=== PATIENT | female | born 1985 | race American Indian/Alaskan Native ===

== ENCOUNTER 2021-10-27 01:59 | Emergency (ER) | payer OTHER ==
[2021-10-27] MEDS ORDERED: methylPREDNISolone Sodium Succinate 125 MG/2 ML SDV IM ONE (02:24)
[2021-10-27] MEDS ORDERED: LORazepam 1 MG Tab PO ONE (02:36)
[2021-10-27 02:38] LABS: TROPONIN I HIGH SENSITIVITY 4.8 pg/mL (<=60.3)
[2021-10-27 02:58] LABS: CORONAVIRUS COVID-19 NAA NEGATIVE (NEGATIVE)
== END 2021-10-27 03:12 ==
LOC: JP.ED 01:59
DX: F41.0 Panic disorder [episodic paroxysmal anxiety] (principal); F45.8 Other somatoform disorders; F43.0 Acute stress reaction; L50.9 Urticaria, unspecified; E87.6 Hypokalemia; Z20.822 Contact with and (suspected) exposure to COVID-19
CPT/HCPCS: 0241U; 36415; 71045; 71045-26; 80053; 84484; 85025; 86140; 93005; 93010; 96372; 99282; 99285-25; A9270-GY; J2930